=== PATIENT | female | born 1945 | race Caucasian/White ===

== ENCOUNTER 2025-03-17 08:23 | Emergency (ER) | payer MEDICARE, OTHER, SELFPAY ==
[2025-03-17] VITALS (17 sets, daily range): BP systolic 96–197; BP diastolic 49–146; BMI 37.8
[2025-03-17 08:53] LABS: Hematocrit 40.6 % (37.0-47.0); Hemoglobin 13.9 g/dL (12.0-16.0); Mean Corp Hgb Conc. 34.2 g/dL (33.0-37.0); Mean Corpuscular Volume 89.8 fL (81.0-99.0); Nucleated Red Blood Cells % 0 %; Platelet Count 202 10^3/uL (130-400); Red Cell Dist. Width 12.9 % (11.5-14.5)
[2025-03-17 09:09] LABS: ALT (SGPT) 18 U/L (0-35); AST (SGOT) 21 U/L (14-36); Albumin 4.3 g/dl (3.5-5.0); Alkaline Phosphatase 63 U/L (38-126); Blood Urea Nitrogen 20 mg/dl (7-17); Calcium 9.8 mg/dl (8.4-10.2); Carbon Dioxide 22 mmol/L (22-30); Chloride 111 mmol/L (98-107); Estimated Creatinine Clearance 66 ml/min; Glucose 104 mg/dl (70-99); Potassium 3.9 mmol/L (3.5-5.1); Sodium 141 mmol/L (135-145); Total Protein 7.1 g/dl (6.3-8.2); eGFR > 60.00
[2025-03-17 09:11] LABS: INR 1.62; PT 19.7 Sec (11.4-14.6)
[2025-03-17 09:12] LABS: APTT 41.0 Sec (23.4-35.0)
--- NOTE | 2025-03-17 09:17 | ED.GENMED ---
History of Present Illness
General
Chief Complaint: Heart Rate Problem
Source: patient
Exam Limitations: none
Time Seen by Provider: 03/17/25 08:30
Nursing documentation reviewed up to this point in time: agreed with
History of Present Illness
History of Present Illness:
Patient with history of paroxysmal atrial fibrillation on Xarelto, presents to ED secondary to recurrent palpitations, associated with increased heart rate, since waking up this morning. However, patient does report pressure in her neck and chest,
which usually does not accompany her atrial fibrillation. Denies fever or chills. Denies recent illness. Denies shortness of breath. Denies dizziness or nausea sensation. Patient states she often has increased heart rate/atrial fibrillation,
which she is able to control with deep breathing and relaxing. Patient's primary pl sql programmer is at [facility]. In addition, patient states that her close friend recently suffered CVA, which has affected her.
Past History
Past History
ED Past Medical History: HTN, Hypercholesterolemia and Other (Glaucoma)
Social History
Tobacco: Non-smoker
Personal:
Living: with family
Review of Systems
Review of Systems
Allergies reviewed?: Yes
All Other Systems: ROS reviewed and negative except as documented in HPI and ROS
Constitutional: Reports no symptoms
EENT: Reports no symptoms
Respiratory: Reports no symptoms
Cardiac: Reports chest pain and palpitations
ABD/GI: Reports no symptoms; Denies nausea or vomiting
Musculoskeletal: Reports no symptoms
Skin: Reports no symptoms
Neurological: Reports no symptoms
Phy Exam
Physical Exam
Physical Exam:
Physical Exam
General: mild distress, not acutely ill. afebrile. anxious appearing
Head: nc/at. eomi
Neck: supple. no meningeal signs.
Heart: irregularly irregular, tachycardic.
Lungs: no acute respiratory distress. clear bilaterally
Abdomen: normal bowel sounds. not tender.
Neuro: alert and oriented x 3. no focal neurological deficits
Skin: no rash
Psychiatric: well kept. interactive and cooperative
Extremities: no edema. no calf tenderness.
Course
Orders/Labs/Results
Orders:
Orders
03/17/25 08:27
Electrocardiogram (*1) Urgent
Reason for Study: Tachycardia
EKG- Treatment ONCE
03/17/25 08:46
CMP [Comprehensive Metabolic Panel] Urgent
Complete Blood Count/With Diff Urgent
PT/INR [Prothrombin Time] Urgent
PTT Urgent
Troponin I Urgent
03/17/25 09:13
0.9% Sodium Chloride 250 ml [Nss] 250 ml IV BOLUS
Diltiazem HCl [Cardizem] 10 mg IV NOW STA
03/17/25 09:14
Diltiazem 125 mg/125 ml Nss [Cardizem] 125 mg in 125 ml .ROUTE .STK-MED
Diltiazem HCl [Cardizem] 25 mg .ROUTE .STK-MED ONE
03/17/25 09:15
Diltiazem 125 mg/125 ml Nss [Cardizem] 125 mg in 125 ml IV PER PROTOCOL
Initial dose in mg/hr, then titrate:: 5
Titrate to keep:: Heart rate 80-100 bpm
Titrate by mg/hr:: 5 mg/hr
Frequency of titrations (minutes):: 15
Maximum dose in mg/hr:: 15
03/17/25 12:14
Electrocardiogram (*1) Urgent
Reason for Study: Other
Other Reason for Exam: convert to SR from cardizem gtt
EKG- Treatment ONCE
Abnormal Lab Results
03/17/25
08:46
MPV 11.1 H fL
(7.4-10.4)
PT 19.7 H Sec
(11.4-14.6)
APTT 41.0 H Sec
(23.4-35.0)
Chloride 111 H mmol/L
(98-107)
BUN 20 H mg/dl
(7-17)
Glucose 104 H mg/dl
(70-99)
03/17/25 08:46
03/17/25 08:46
Vital Signs
Initial and Last Documented VS:
Initial Vital Signs
Temp Pulse Resp BP Pulse Ox
98.4 F 124 18 197/146 95
03/17/25 08:24 03/17/25 08:24 03/17/25 08:24 03/17/25 08:24 03/17/25 08:24
Last Documented Vital Signs
Temp Pulse Resp BP Pulse Ox
98.4 F 56 15 105/51 91
03/17/25 08:24 03/17/25 13:30 03/17/25 13:30 03/17/25 13:00 03/17/25 13:30
MDM/Problems Addressed
MDM/Problems Addressed:
History, exam, and EKG consistent with recurrent rapid atrial fibrillation. Patient started on Cardizem bolus followed by Cardizem infusion, along with IV fluids. During observation, patient noted to convert spontaneously to sinus rhythm on the
monitor, confirmed by repeat EKG. Patient will be observed further. If she remains in sinus rhythm, patient will be discharged home for outpatient follow-up with her primary pl sql programmer
Repeat EKG: NSR @ 51 bpm
Critical care statement: A total of 40 minutes of critical care time was provided for this patient. This includes management of unstable vital signs, evaluation of the patient at bedside, reviewing the patient's pertinent medical records, review of
old EKGs and review of pertinent medical records. This time with separate from time utilized to perform the aforementioned documented procedures
*Pulse Oximetry
SaO2: 96
Oxygen Mode of Delivery: Room air
Patient hypoxic: no
*Critical Care Note
Total Time (30-74mins, 75-104mins- exclusive of procedures): 40 min
ED Attending Note
-
Portions of this chart may have been created with voice recognition software.� Occasional wrong word or��sound alike� substitutions may have occurred due to the inherent limitations of voice recognition software.
Discharge Plan
Departure
Patient Disposition: Home (Routine Discharge)
Date of Disposition: 03/17/25
Time of Disposition: 13:26
Patient with high blood pressure during this ER visit?: Yes
Condition: Fair
Discharge Problem:
Atrial fibrillation, rapid
Instructions: Atrial Fibrillation (DC)
Prescriptions:
No Action
calcium-vitamin D3-vitamin K [Citracal-D3 Soft Chew] 1 EACH tablet,chewable
1 tab PO DAILY
multivitamin with folic acid [Tab-A-Osvaldo] 1 TABLET tablet
1 tab PO DAILY
latanoprost 1 DROP drops
1 drp BOTH EYES HS
omeprazole 20 mg Tablet,Delayed Release (Dr/Ec)
20 mg PO HS
atenolol 25 MG tablet
25 mg PO HS
famotidine 20 mg Tablet
20 mg PO HSPRN PRN (Reason: stomach issues)
losartan 100 mg Tablet
100 mg PO HS
dorzolamide-timolol 22.3-6.8 mg/mL drops
1 drp BOTH EYES BID
diphenhydramine-acetaminophen [Acetaminophen PM] 25-500 mg Tablet
1 tab PO HS
rivaroxaban [Xarelto] 20 mg Tablet
20 mg PO QPM
Referrals:
Dominga Martinez DO [Family Provider, Family Practice]
Activity Restrictions/Additional Instructions:
As discussed, please follow-up with your primary pl sql programmer for reevaluation. In ED, you were successfully treated with Cardizem infusion.
Interventions
Interventions:
*Risk Screen - Suicide Last Done: 03/17/25 08:24
*General Assessment Last Done: 03/17/25 08:24
*Neglect/Abuse Screening Last Done: 03/17/25 08:24
*ED- Fall Risk Assessment Last Done: 03/17/25 08:35
*ED COVID-19 Vaccine History Last Done: 03/17/25 08:35
*Nursing Disposition Last Done: 03/17/25 13:55
ED- Cardiac Assessment Last Done: 03/17/25 08:35
ED- Pulmonary Assessment Last Done: 03/17/25 08:35
Discharge Date and Time
Discharge Date/Time: 03/17/25 13:55
Print Language: CHINESE
[2025-03-17 09:20] LABS: Troponin I < 0.012 ng/ml
[2025-03-17] MEDS: CARDIZEM 10 MG IV (09:20)
[2025-03-17] MEDS: NSS 250 IV (09:21)
[2025-03-17] MEDS: CARDIZEM 125 IV (09:22)
== END 2025-03-17 13:55 | disposition home or self-care (01) ==
LOC: EMR 08:23
PROVIDERS: EMERGENCY PHYSICIAN Emergency Medicine; FAMILY PHYSICIAN Family Medicine
DX: R00.2 Palpitations (principal); E78.00 Pure hypercholesterolemia, unspecified; I10 Essential (primary) hypertension; I48.0 Paroxysmal atrial fibrillation; Z79.01 Long term (current) use of anticoagulants; H40.9 Unspecified glaucoma
CPT/HCPCS: 99291; 96374; 96376; 96361; 80053; 84484; 85025; 85610; 85730; 93005

== ENCOUNTER → 2025-06-15 15:33 | Outpatient (REF) | payer MEDICARE, OTHER, SELFPAY | LOC: RAD 15:33 | PROVIDERS: ATTENDING PHYSICIAN Surgery; FAMILY PHYSICIAN Family Medicine | DX: R31.9 Hematuria, unspecified (principal) | CPT/HCPCS: 74178; Q9967 ==